=== PATIENT | female | born 1985 | race Two or more races ===

== ENCOUNTER 2019-10-21 02:04 | Emergency (ER) | payer BC ==
[2019-10-21] MEDS ORDERED: NORMAL SALINE 1000 ML 1,000 ML IV ONE (02:13)
[2019-10-21] MEDS ORDERED: ONDANSETRON HCL INJ/PF 4 MG/2 ML SDV IV ONE (02:13)
[2019-10-21 02:40] LABS: ABSOLUTE EOSINOPHILS # (AUTO) 0.2 10^3/uL (0.0-0.6); ABSOLUTE LYMPHOCYTES (AUTO) 1.4 10^3/uL (0.5-4.7); ABSOLUTE MONOCYTES (AUTO) 0.8 10^3/uL (0.1-1.4); ABSOLUTE NEUT (AUTO) 3.7 10^3/uL (1.7-8.2); BASOPHILS % (AUTO) 0.6 % (0-2); EOSINOPHILS % (AUTO) 2.5 % (0-6); HEMATOCRIT 43.5 % (36.0-47.0); HEMOGLOBIN 15.2 g/dL (12.0-15.5); LYMPHOCYTES % (AUTO) 23.1 % (13-45); MEAN CORPUSCULAR HEMOGLOBIN 33.7 pg (27.0-33.4); MEAN CORPUSCULAR HGB CONC 34.9 g/dL (32.0-36.0); MEAN CORPUSCULAR VOLUME 97 fl (80-97); MONOCYTES % (AUTO) 12.5 % (3-13); PLATELET COUNT 272 10^3/uL (150-450); RED BLOOD COUNT 4.51 10^6/uL (3.72-5.28); RED CELL DISTRIBUTION WIDTH 13.6 % (11.5-14.0); SEGMENTED NEUTROPHILS % (AUTO) 61.3 % (42-78); TOTAL CELLS COUNTED % (AUTO) 100 %; WHITE BLOOD COUNT 6.1 10^3/uL (4.0-10.5)
[2019-10-21 02:44] LABS: APPEARANCE,URINE CLOUDY; BILIRUBIN,URINE NEGATIVE (NEGATIVE); COLOR,URINE AMBER; GLUCOSE, URINE NEGATIVE (NEGATIVE); KETONES,URINE 20 mg/dL (NEGATIVE); LEUKOCYTE ESTERASE,URINE MODERATE (NEGATIVE); NITRITE,URINE NEGATIVE (NEGATIVE); PROTEIN,URINE 100 mg/dL (NEGATIVE); URINE SPECIFIC GRAVITY 1.036
[2019-10-21 02:54] LABS: A TYPE INFLUENZA AG POSITIVE (NEGATIVE); ALBUMIN 4.2 g/dL (3.5-5.0); ALKALINE PHOSPHATASE 39 U/L (38-126); ANION GAP 15 (5-19); ASPARTATE AMINO TRANSFERASE 29 U/L (14-36); B INFLUENZA AG NEGATIVE (NEGATIVE); BILIRUBIN,DIRECT 0.4 mg/dL (0.0-0.4); BILIRUBIN,TOTAL 0.4 mg/dL (0.2-1.3); BLOOD UREA NITROGEN 11 mg/dL (7-20); CARBON DIOXIDE 19 mmol/L (22-30); CHLORIDE 105 mmol/L (98-107); GLUCOSE 95 mg/dL (75-110); POTASSIUM 3.8 mmol/L (3.6-5.0); TOTAL PROTEIN 7.8 g/dL (6.3-8.2)
[2019-10-21] MEDS ORDERED: PROMETHAZINE HCL INJ 25 MG/1 ML VIAL IV ONE (04:57)
--- NOTE | 2019-10-21 05:16 | ER Document Report ---
Entered by THAIS PENALOZA SCRIBE 10/21/19 0458 Acting as scribe for:TREY YAP IV, MD ED GI/ - General Mode of Arrival: Ambulatory Information source: Patient TRAVEL OUTSIDE OF THE [place] IN LAST 30 DAYS: No <TREY YAP IV - Last Filed: 10/21/19 05:19> <DOUGHERTYKIM Tanika - Last Filed: 10/21/19 07:33> - General Chief Complaint: Nausea/Vomiting Stated Complaint: VOMITING,STOMACH PAIN Time Seen by Provider: 10/21/19 04:43 Primary Care Provider: VERENICE BARNETT MD [ACTIVE STAFF] - Follow up as needed CAPRI HELM PA-C [Primary Care Provider] - Follow up as needed Notes: This 34 year old female patient presents to the ED today with complaints of nausea and vomiting with associated abdominal cramps that started x3 days ago. Patient states that the nausea occurs all day long and that it has subsided a little after IV Zofran. Patient reports that she was seen at an urgent care recently and prescribed Tamiflu and a x30 day supply of 4 mg Zofran, but states that she hasn't been able to keep them down. Patient notes that her menstrual cycle is x18 days late, she is sexually active, and she doesn't use any form of contraceptives. Patient denies any possibility of being , stating that multiple doctors stated that she has a 1% chance of becoming due to scar tissue on both fallopian tubes and the removal of the right tube. (TREY RODRIGUEZ IV) - Related Data Allergies/Adverse Reactions: hydrocodone bitartrate [From Vicodin] Allergy (Verified 10/21/19 02:09) Past Medical History - General Information source: Patient - Social History Smoking Status: Current Some Day Smoker Cigarette use (# per day): Yes Chew tobacco use (# tins/day): No Smoking Education Provided: No Frequency of alcohol use: None Drug Abuse: None Family History: Reviewed & Not Pertinent, Arthritis, CAD, CVA, Hyperlipidemia, Hypertension, Thyroid Disfunction Patient has suicidal ideation: No Patient has homicidal ideation: No - Past Medical History Cardiac Medical History: Pulmonary Medical History: Reports: Hx Asthma Endocrine Medical History: Reports: Hx Hypothyroidism Renal/ Medical History: Reports: Hx Ovarian Cysts GI Medical History: Musculoskeletal Medical History: Skin Medical History: Reports Hx Cellulitis Infectious Medical History: Past Surgical History: Reports: Hx Gynecologic Surgery - Fallopian tube scar tissue removal. Ovarian cyst removal - Immunizations Immunizations up to date: No Hx Diphtheria, Pertussis, Tetanus Vaccination: No <TREY YAP IV - Last Filed: 10/21/19 05:19> Review of Systems - Review of Systems Constitutional: No symptoms reported EENT: No symptoms reported Cardiovascular: No symptoms reported Respiratory: No symptoms reported Gastrointestinal: See HPI, Abdominal pain, Nausea, Vomiting Genitourinary: No symptoms reported Female Genitourinary: See HPI. denies: Musculoskeletal: No symptoms reported Skin: No symptoms reported Hematologic/Lymphatic: No symptoms reported Neurological/Psychological: No symptoms reported -: Yes All other systems reviewed and negative <TREY YAP IV - Last Filed: 10/21/19 05:19> Physical Exam - General General appearance: Alert In distress: None - HEENT Head: Normocephalic, Atraumatic Eyes: Normal Pupils: PERRL - Respiratory Respiratory status: No respiratory distress Chest status: Nontender Breath sounds: Normal Chest palpation: Normal - Cardiovascular Rhythm: Regular Heart sounds: Normal auscultation Murmur: No Friction rub: No Gallop: None auscultated - Abdominal Inspection: Normal Distension: No distension Bowel sounds: Normal Tenderness: Nontender - Abdomen soft Organomegaly: No organomegaly - Back Back: Normal, Nontender - Extremities General upper extremity: Normal inspection General lower extremity: Normal inspection - Neurological Neuro grossly intact: Yes - Psychological Associated symptoms: Normal affect, Normal mood - Skin Skin Temperature: Warm Skin Moisture: Dry Skin Color: Normal <TREY YAP IV - Last Filed: 10/21/19 05:19> - Vital signs Vitals: Temp Pulse Resp BP Pulse Ox 98.7 F 96 20 127/76 H 98 10/21/19 02:08 10/21/19 02:08 10/21/19 02:08 10/21/19 02:08 10/21/19 02:08 Course - Laboratory Result Diagrams: 10/21/19 02:15 10/21/19 02:15 <TREY YAP IV - Last Filed: 10/21/19 05:19> - Laboratory Result Diagrams: 10/21/19 02:15 10/21/19 02:15 <KIM DOUGHERTY - Last Filed: 10/21/19 07:33> - Re-evaluation Re-evalutation: 10/21/19 07:25 Patient sitting in bed resting comfortably not showing any signs of distress not complaining of any abdominal pain nausea vomiting. Discussed with patient findings of her ultrasound which shows an intrauterine 5 weeks and 6 days. Heart rate 118. No signs of any hemorrhaging at this time. Also discussed patient's urinary symptoms as well as her urinalysis which is a contaminated urine with multiple squamous cells 48 per high-powered field. Told patient we will culture her urine and at this time she has no symptoms of a urinary tract infection such as urinary frequency or burning. Also patient has positive influenza a and will be needing Tamiflu treatment. Patient will be given follow-up with CREW MESS ATTENDANT a in her primary care physician. Also patient will be treated with Tamiflu. (KIM DOUGHERTY) - Vital Signs Vital signs: Temp Pulse Resp BP Pulse Ox 97.4 F 69 20 114/67 98 10/21/19 07:04 10/21/19 06:58 10/21/19 02:08 10/21/19 06:58 10/21/19 06:58 - Laboratory Laboratory results interpreted by me: 10/21/19 10/21/19 10/21/19 02:15 02:15 02:15 MCH 33.7 H Carbon Dioxide 19 L Beta HCG, Quant Urine Protein 100 H Urine Ketones 20 H Urine Blood MODERATE H Urine Urobilinogen 2.0 H Ur Leukocyte Esterase MODERATE H Urine Ascorbic Acid 20 H Urine HCG, Qual 10/21/19 10/21/19 02:15 02:15 [facility] Carbon Dioxide Beta HCG, Quant 60775.00 H Urine Protein Urine Ketones Urine Blood Urine Urobilinogen Ur Leukocyte Esterase Urine Ascorbic Acid Urine HCG, Qual POSITIVE H Discharge <TREY YAP IV - Last Filed: 10/21/19 05:19> <KIM DOUGHERTY - Last Filed: 10/21/19 07:33> - Discharge Clinical Impression: First trimester , Influenza A Condition: Stable Disposition: HOME, SELF-CARE Instructions: Influenza ([facility]) [phone] Additional Instructions: You are . care is best started as early in as possible. If you're unsure about continuing this , you should discuss this with your physician or with pest control operator at [facility]. You should take only medications approved by your physician. Acetaminophen can safely be taken for minor pains. As a rule, medication for chronic conditions such as asthma or seizures can safely be continued. You should discuss with the physician every medicine you take. Any regular exercise program can be continued. Talk to your physician, however, before engaging in competitive or demanding sports. Alcohol, smoking, and "street drugs" are dangerous to your baby. Cocaine is especially dangerous. Don't use any illicit drugs! You have been referred to Dr. Verenice Barnett for CREW MESS ATTENDANT a follow-up. Prescriptions: Oseltamivir Phosphate [Tamiflu 75 mg Capsule] 75 mg PO BID 5 Days #10 capsule Forms: Return to Work Referrals: CAPRI HELM PA-C [Primary Care Provider] - Follow up as needed VERENICE BARNETT MD [ACTIVE STAFF] - Follow up as needed I personally performed the services described in the documentation, reviewed and edited the documentation which was dictated to the scribe in my presence, and it accurately records my words and actions.
[2019-10-21 07:01] VITALS: BP 114/67
--- NOTE | 2019-10-21 08:15 | RADIOLOGY REPORT (SQ) ---
EXAM DESCRIPTION: U/S OB TRANSVAGINAL W/O DOP COMPLETED DATE/TIME: 10/21/2019 6:44 am REASON FOR STUDY: abdominal pain, + test COMPARISON: None. TECHNIQUE: Transvaginal static and realtime grayscale images acquired of the pelvis. Additional trevor cted spectral and color Doppler images recorded. All images stored on PACs. C,050 CLINICAL DATES: EGA: 2 weeks 5 days. MARLENY: 07/08/2020 LIMITATIONS: None. FINDINGS: FETUS: Single Living intrauterine . ULTRASOUND EGA: 5 weeks 6 days ULTRASOUND MARLENY: 06/16/2020 EFW: Not applicable less than 20 weeks. CRL: 0.33 cm FHR: 118 beats per minute. SURVEY: Too early to assess. AMNIOTIC FLUID: Adequate amount. PLACENTA: Not yet developed due to early gestation. SUBCHORIONIC BLEED: A hypoechoic area adjacent to the gestational sac measures 1.0 x 0.5 x 0.8 cm. SIZE OF BLEED: See above. UTERUS: The uterus measures 9.7 x 4.8 x 6.6 cm. A 1.6 x 1.1 x 1.5 cm cm hypoechoic area within the uterus question of an uterine fibroid. CERVICAL LENGTH: 3.2 cm. Closed. RIGHT ADNEXA: Not visualized due to overlying bowel gas. LEFT ADNEXA: Left ovary measures 4.4 x 3.9 x 5.2 cm. A 3.8 x 3.6 x 1.4 cm cyst. No adnexal free flu id. FREE FLUID: None. OTHER: History of right salpingectomy. IMPRESSION: LIVING INTRAUTERINE . EGA: 5 weeks 6 days Small subchorionic bleed. Small uterine fibroid. Left ovarian cyst. Trimester of : First trimester - 0 to 13 weeks. TECHNICAL DOCUMENTATION: JOB ID: [id number] 2010 [employer]- All Rights Reserved rev-12/29 Reading location - IP/workstation name: [email or web address]
== END 2019-10-21 07:46 | disposition home or self-care (01) ==
LOC: ER 02:04
DX: O26.91 Pregnancy related conditions, unspecified, first trimester (principal); J11.1 Influenza due to unidentified influenza virus with other respiratory manifestations; O21.9 Vomiting of pregnancy, unspecified; R10.9 Unspecified abdominal pain; O99.331 Smoking (tobacco) complicating pregnancy, first trimester; E03.9 Hypothyroidism, unspecified; Z3A.01 Less than 8 weeks gestation of pregnancy
CPT/HCPCS: 99284; 96361; 96374; 96375; 86900; 86901; 36415; 87086; 84702; 85025; 81025; 80053; 81001; 87804; 76817; J2550; J2405; J7030

== ENCOUNTER 2020-03-08 10:01 | Outpatient (CLI) | payer BC ==
[2020-03-08 10:52] LABS: APPEARANCE,URINE CLOUDY; BILIRUBIN,URINE NEGATIVE (NEGATIVE); COLOR,URINE YELLOW; GLUCOSE, URINE NEGATIVE (NEGATIVE); KETONES,URINE NEGATIVE (NEGATIVE); LEUKOCYTE ESTERASE,URINE SMALL (NEGATIVE); NITRITE,URINE NEGATIVE (NEGATIVE); PROTEIN,URINE NEGATIVE (NEGATIVE); URINE SPECIFIC GRAVITY 1.018; UROBILINOGEN,URINE NEGATIVE mg/dL (<2.0)
[2020-03-08] MEDS ORDERED: RINGERS SOLUTION,LACTATED 1,000 ML IV PRN (11:01)
[2020-03-08 11:08] LABS: URINE AMPHETAMINES SCREEN NEGATIVE; URINE BARBITURATES SCREEN NEGATIVE; URINE BENZODIAZEPINES SCREEN NEGATIVE; URINE COCAINE SCREEN NEGATIVE; URINE METHADONE SCREEN NEGATIVE; URINE PHENCYCLIDINE SCREEN NEGATIVE
[2020-03-08 11:18] LABS: URINE MARIJUANA (THC) SCREEN UNCONFIRMED POSITIVE
--- NOTE | 2020-03-08 12:20 | RADIOLOGY REPORT (SQ) ---
EXAM DESCRIPTION: U/S OB LIMITED IMAGES COMPLETED DATE/TIME: 03/08/2020 11:54 am REASON FOR STUDY: L sided abd pain @26.1, cervical length COMPARISON: 10/21/2019 TECHNIQUE: Limited transvaginal and transabdominal grayscale ultrasound for evaluation of specific r equested obstetrical parameters. LIMITATIONS: None. FINDINGS: CERVICAL LENGTH: 3.8 cm Closed. JOSH: 16.8 cm. FHR: 141 beats per minute. PRESENTATION: Cephalic. PLACENTA: Fundal ANATOMY: Not assessed OTHER: 6.9 x 4 x 3.4 cm left ovarian cyst.Color Doppler flow demonstrated in the left ovary. IMPRESSION: LIMITED OBSTETRICAL ULTRASOUND WITH MEASURED PARAMETERS DELINEATED ABOVE. 6.9 x 4 x 3.4 cm left ovarian cyst. Color Doppler flow demonstrated in the left ovary. Trimester of : Second trimester - 13 weeks 1 day to 27 weeks 6 days. TECHNICAL DOCUMENTATION: JOB ID: [id number] 2010 [employer]- All Rights Reserved Reading location - IP/workstation name: [email or web address]
== END 2020-03-08 13:14 | disposition home or self-care (01) ==
LOC: LC 10:01
PROVIDERS: ATTEND Obstetrics & Gynecology
DX: O34.82 Maternal care for other abnormalities of pelvic organs, second trimester (principal); Z3A.26 26 weeks gestation of pregnancy
CPT/HCPCS: 81001; 80307; 76815; 59899; G0480 ×2; 80349

== ENCOUNTER 2020-04-15 16:58 | Outpatient (CLI) | payer BC ==
[2020-04-15 18:57] LABS: APPEARANCE,URINE CLOUDY; BILIRUBIN,URINE NEGATIVE (NEGATIVE); COLOR,URINE AMBER; GLUCOSE, URINE NEGATIVE (NEGATIVE); KETONES,URINE NEGATIVE (NEGATIVE); LEUKOCYTE ESTERASE,URINE LARGE (NEGATIVE); NITRITE,URINE NEGATIVE (NEGATIVE); PROTEIN,URINE 100 mg/dL (NEGATIVE)
[2020-04-15 19:17] LABS: ADD MANUAL MICROSCOPIC YES
[2020-04-15 19:18] LABS: BACTERIA,URINE TRACE /HPF
[2020-04-15 19:23] LABS: URINE AMPHETAMINES SCREEN NEGATIVE; URINE BARBITURATES SCREEN NEGATIVE; URINE BENZODIAZEPINES SCREEN NEGATIVE; URINE COCAINE SCREEN NEGATIVE; URINE METHADONE SCREEN NEGATIVE; URINE PHENCYCLIDINE SCREEN NEGATIVE
[2020-04-15 19:24] LABS: URINE MARIJUANA (THC) SCREEN UNCONFIRMED POSITIVE
[2020-04-15] MEDS ORDERED: RINGERS SOLUTION,LACTATED 1,000 ML IV PRN (19:45)
[2020-04-15] MEDS ORDERED: CEFTRIAXONE INJ 1000 MG VIAL IV ONE (19:46)
[2020-04-15] MEDS ORDERED: CEFTRIAXONE INJ 1000 MG VIAL ONE (19:53)
== END 2020-04-15 22:08 | disposition home or self-care (01) ==
LOC: LC 16:58
PROVIDERS: ATTEND Obstetrics & Gynecology
DX: O99.283 Endocrine, nutritional and metabolic diseases complicating pregnancy, third trimester (principal); E86.0 Dehydration; E03.9 Hypothyroidism, unspecified; Z3A.31 31 weeks gestation of pregnancy; Z88.6 Allergy status to analgesic agent; Z87.891 Personal history of nicotine dependence; Z02.83 Encounter for blood-alcohol and blood-drug test
CPT/HCPCS: 59899; 81001; 80307; G0480 ×2; J0696; 80349

== ENCOUNTER 2020-05-30 13:32 | Emergency (ER) | payer BC ==
[2020-05-30] MEDS ORDERED: LIDOCAINE 1% INJ-PF (10 MG/ML) 30 ML SDV INJ ONE (14:00)
[2020-05-30] MEDS ORDERED: ACETAMINOPHEN 325 MG TABLET PO ONE (14:01)
--- NOTE | 2020-05-30 15:03 | ER Document Report ---
HPI - HPI Time Seen by Provider: 05/30/20 13:50 Pain Level: 5 Context: Patient is a 35-year-old female presents to the emergency department with a chief complaint of an abscess to her right inner thigh. Patient states that she was started on amoxicillin by her FOUR CORNER STAYER MACHINE OPERATOR 3 days ago. Patient states that it is not getting any better. States that she started to have some drainage. She is - ROS Systems Reviewed and Negative: Yes All other systems reviewed and negative - CONSTITUTIONAL Constitutional: DENIES: Fever, Chills - REPRODUCTIVE Reproductive: REPORTS: : - MUSCULOSKELETAL Musculoskeletal: REPORTS: Extremity pain - Right inner thigh - DERM Skin Color: Normal Notes: Abscess to right inner thigh Past Medical History - General Information source: Patient - Social History Smoking Status: Never Smoker Family History: Reviewed & Not Pertinent, Arthritis, CAD, CVA, Hyperlipidemia, Hypertension, Thyroid Disfunction - Past Medical History Cardiac Medical History: Pulmonary Medical History: Reports: Hx Asthma Endocrine Medical History: Reports: Hx Hypothyroidism Renal/ Medical History: Reports: Hx Ovarian Cysts. Denies: Hx Peritoneal Dialysis GI Medical History: Musculoskeletal Medical History: Skin Medical History: Reports Hx Cellulitis Infectious Medical History: Past Surgical History: Reports: Hx Gynecologic Surgery - Fallopian tube scar tissue removal. Ovarian cyst removal - Immunizations Immunizations up to date: No Hx Diphtheria, Pertussis, Tetanus Vaccination: No Vertical Provider Document - CONSTITUTIONAL Agree With Documented VS: Yes Exam Limitations: No Limitations General Appearance: No Apparent Distress - INFECTION CONTROL TRAVEL OUTSIDE OF THE [place] IN LAST 30 DAYS: No - HEENT HEENT: Atraumatic, Normocephalic, PERRLA - RESPIRATORY Respiratory: No Respiratory Distress - CARDIOVASCULAR Cardiovascular: Regular Rate - GI/ABDOMEN Gastrointestinal: Abdomen Soft, Abdomen Non-Tender - MUSCULOSKELETAL/EXTREMETIES Musculoskeletal/Extremeties: FROM - NEURO Level of Consciousness: Awake, Alert, Appropriate Motor/Sensory: No Motor Deficit, No Sensory Deficit - DERM Integumentary: Warm, Dry, Abscess - Right inner thigh Course - Re-evaluation Re-evalutation: 05/30/20 Differential diagnosis includes but normal limited to: abscess, dermoid cyst, sebaceous cyst, furnucle, or others. Based on patient's physical exam and history, this is an abscess. It was drained in the ER. There is slight surrounding cellulitis. I do not believe the patient has underlying necrotizing fasciitis. Based on patient's physical exam and these factors, they will be treated with Keflex. Packing was placed. See procedure note. Follow-up precautions were given. Verbal discharge instructions were given to the patient. They verbalized understanding. They are stable for discharge. - Vital Signs Vital signs: Temp Pulse Resp BP Pulse Ox 97.9 F 100 20 125/70 98 05/30/20 13:43 05/30/20 13:43 05/30/20 13:43 05/30/20 13:43 05/30/20 13:43 Procedures - Incision and Drainage Right Medial Thigh Type: Simple Anesthetic type: 1% Lidocaine mL's of anesthetic: 10 Blade size: 11 I&D procedure: Betadine prep applied, Shurclens applied, Iodoform packing placed, Sterile dressing applied Incision Method: Incision made by scalpel Amount/type of drainage: 30 mL/purulent and blood Adult Front & Back picture: 1 - Abscess Discharge - Discharge Clinical Impression: Abscess Condition: Stable Disposition: HOME, SELF-CARE Instructions: Cephalexin ([facility]), Post Incision and Drainage Additional Instructions: You were seen today in the emergency department for an abscess to your right i nner thigh. Take Tylenol 650 mg every 6 hours for your pain. Stop your amoxicillin. Start Keflex as ordered. Follow-up with your primary care provider on Monday to have the packing removed and reassess the wound. You can keep the Benji wrap around your inner thigh to keep pressure to the area. Prescriptions: Cephalexin Monohydrate [Keflex 500 mg Capsule] 500 mg PO Q6H 7 Days #28 capsule Forms: Return to Work Referrals: TRINIDAD MONTESINOS MD [ACTIVE STAFF] - Follow up as needed JACINDA BOWDEN MD [EMERITUS] - 06/01/20
[2020-05-30 15:33] VITALS: BP 121/71
== END 2020-05-30 15:33 | disposition home or self-care (01) ==
LOC: ER 13:32
DX: L02.415 Cutaneous abscess of right lower limb (principal)
CPT/HCPCS: 99283; 87070; 87205; 87075; 10060; J3490

== ENCOUNTER 2020-06-05 23:02 | Inpatient (IN) | payer BC ==
[2020-06-05 23:43] LABS: APPEARANCE,URINE CLOUDY; BILIRUBIN,URINE NEGATIVE (NEGATIVE); COLOR,URINE YELLOW; GLUCOSE, URINE NEGATIVE (NEGATIVE); KETONES,URINE NEGATIVE (NEGATIVE); LEUKOCYTE ESTERASE,URINE SMALL (NEGATIVE); NITRITE,URINE NEGATIVE (NEGATIVE); PROTEIN,URINE 30 mg/dL (NEGATIVE); URINE SPECIFIC GRAVITY 1.029; UROBILINOGEN,URINE NEGATIVE mg/dL (<2.0)
[2020-06-06 00:06] LABS: URINE AMPHETAMINES SCREEN NEGATIVE; URINE BENZODIAZEPINES SCREEN NEGATIVE; URINE COCAINE SCREEN NEGATIVE; URINE METHADONE SCREEN NEGATIVE; URINE PHENCYCLIDINE SCREEN NEGATIVE
[2020-06-06 00:13] LABS: URINE BARBITURATES SCREEN UNCONFIRMED POSITIVE; URINE MARIJUANA (THC) SCREEN UNCONFIRMED POSITIVE
[2020-06-06] MEDS ORDERED: RINGERS SOLUTION,LACTATED 1,000 ML IV ONE ×2 (00:47→04:09)
[2020-06-06] MEDS ORDERED: ONDANSETRON HCL INJ/PF 4 MG/2 ML SDV ONE (00:49)
--- NOTE | 2020-06-06 03:56 | RADIOLOGY REPORT (SQ) ---
EXAM: US Biophysical Profile Without Non-Stress Testing EXAM DATE/TIME: 06/06/2020 2:48 AM CLINICAL HISTORY: The patient is 35 years old and is Female; non reactive NST , gestational age 39 weeks 0 days TECHNIQUE: Real-time ultrasound of the maternal pelvis for biophysical profile evaluation with image documentation. COMPARISON: OB ultrasound from 03/08/2020 FINDINGS: FETUS: Single intrauterine . HEART RATE: heart rate is 141 bpm. PRESENTATION: presentation is vertex. BIOPHYSICAL PROFILE: BREATHING MOVEMENTS: Score 0/2. GROSS BODY MOVEMENTS: Present. Score 2/2. TONE: Score 0/2. QUALITATIVE AMNIOTIC FLUID VOLUME: JOSH is 11.7 cm. Largest vertical pocket of amniotic fluid is 5.4 x 5.3 cm. Score 2/2. IMPRESSION: Abnormal biophysical profile score of 4/8.
[2020-06-06] MEDS ORDERED: RINGERS SOLUTION,LACTATED 1,000 ML IV PRN (04:09)
--- NOTE | 2020-06-06 04:35 | Admission Physical ---
Datetime Report Generated by CPN: 06/06/2020 04:34 CURRENT ADMISSION Chief Complaint: Uterine Contractions; Other Chief Complaint Other: observation Indication for Induction: Not Applicable Admit Impression : Term, Intrauterine ; Intact Membranes; Observation/Evaluation Admit Plan: Admit to Unit; Observation/Evaluation ALLERGIES Medication Allergies: Yes Medication Allergies: hydrocodone bitartrate (04/15/2020) Latex: No Latex Allergies OBSTETRICAL HISTORY EDC: 06/13/2020 00:00 : 1 Para: 0 Term: 0 : 0 SAB: 0 IAB: 0 Livin Gestational Diabetes: No Rh Sensitization: No Incompetent Cervix: No HUONG: No Infertility: No ART Treatment: No Uterine Anomaly: No IUGR: No Hx Previous C/S: No Macrosomia: No Hx Loss/Stillborn: No PIH: No Hx : No Placenta Previa/Abruption: No Depression/PP Depression: No PTL/PROM: No Post Hemorrhage: No Current Procedures: Ultrasound; NST Obstetrical History Comments: g1- current . hypothyroidism (taking synthroid) SEE RECORDS Alcohol: No Marijuana : Yes Marijuana Frequency: Occasional Marijuana Comments: edibles occassionally Cocaine: No Other Illicit Drugs: No Cigarettes: Former Smoker. [id number] Cigarette Frequency: < 5 per day Advised to Stop: Yes MEDICAL HISTORY Diabetes: No Blood Transfusion: No Pulmonary Disease (Asthma, TB): No Breast Disease: No Hypertension: No Wedding Decorator Surgery: No Heart Disease: No Hosp/Surgery: No Autoimmune Disorder: No Anesthetic Complications: No Kidney Disease: No Abnormal Pap Smear: No Neuro/Epilepsy: No Psychiatric Disorders: No Other Medical Diseases: No Hepatitis/Liver Disease: No Significant Family History: No Varicosities/Phlebitis: No Trauma/Violence : No Thyroid Dysfunction: Yes Medical History Comments: Hypothyroidism- takes Synthroid 150 mcg cyst on Left ovary INFECTIOUS HISTORY Gonorrhea: No Genital Herpes: No Chlamydia: No Tuberculosis: No Syphilis: No Hepatitis: No HIV/AIDS Exposure: No Rash or Viral Illness: No HPV: No PHYSICAL EXAM General: Normal HEENT: Normal Neurologic: Normal Thyroid: Deferred Heart: Normal Lungs: Normal Breast: Deferred Back: Normal Abdomen: Normal Genitourinary Exam: Normal Extremities: Normal DTRs: Normal Pelvic Type: Adequate MEMBRANES Membranes: Intact FETUS A EGA: 39.0 Monitoring: External US FHR- Baseline: 120 Variability: Moderate 6-25bpm Accelerations: 10X10 Decelerations: None FHR Category: Category II Presentation: Vertex Admit Comment: 35yo at 39+0ega presents for lower abdominal pain. she is having regular uterine contractions but no cervical change in 2 hours. She may be in latent labor or transitioning to active or this may be dehydration. Spec grav 1.029. She was vomiting when she arrived but feels better with IVF and zofran. NST was reassuring with 10x10 but not reactive. BPP reported as 4/8 but when placed back on monitor reassuring NST with 10 x10 again and possible 15 x15 with good variability. Will admit for observation and re-eval BPP in a couple of hours. Also monitor if signs of transition to active labor. She reports smoking cig prior to arrival - however tox screen was positive for THC. + for mick also but patient is on Fioricet. Will continue to monitor. PLANS FOR LABOR AND DELIVERY Pain Management: Medications Other Pain Management Plans: IV meds Feeding Preference: Breast Benefit of Breast Feed Discussed: Yes Circumcision: Yes INFORMED CONSENT Informed Consent Obtained: Vaginal Delivery; Risks, Benefits and Alternatives Discussed Signature: with User ID: [email or web address]
[2020-06-06 05:10] LABS: ABSOLUTE LYMPHOCYTES (AUTO) 1.8 10^3/uL (0.5-4.7); ABSOLUTE MONOCYTES (AUTO) 0.7 10^3/uL (0.1-1.4); BASOPHILS % (AUTO) 0.2 % (0-2); EOSINOPHILS % (AUTO) 0.2 % (0-6); HEMATOCRIT 33.1 % (36.0-47.0); HEMOGLOBIN 11.6 g/dL (12.0-15.5); LYMPHOCYTES % (AUTO) 11.8 % (13-45); MEAN CORPUSCULAR HEMOGLOBIN 32.4 pg (27.0-33.4); MEAN CORPUSCULAR HGB CONC 35.1 g/dL (32.0-36.0); MEAN CORPUSCULAR VOLUME 92 fl (80-97); MONOCYTES % (AUTO) 4.5 % (3-13); PLATELET COUNT 364 10^3/uL (150-450); RED BLOOD COUNT 3.59 10^6/uL (3.72-5.28); RED CELL DISTRIBUTION WIDTH 13.5 % (11.5-14.0); SEGMENTED NEUTROPHILS % (AUTO) 83.3 % (42-78); TOTAL CELLS COUNTED % (AUTO) 100 %; WHITE BLOOD COUNT 15.7 10^3/uL (4.0-10.5)
[2020-06-06] MEDS ORDERED: LEVOTHYROXINE SODIUM 0.075 MG TABLET PO SCH (06:00)
[2020-06-06] MEDS ORDERED: MAG HYDROX/AL HYDROX/SIMETH SUSP 30 ML UDCUP PO PRN (07:43)
[2020-06-06] MEDS ORDERED: ACETAMINOPHEN 325 MG TABLET PO PRN ×2 (07:43→16:29)
--- NOTE | 2020-06-06 07:58 | L&D Progress Notes ---
PROGRESS NOTES Datetime Report Generated by CPN: 06/06/2020 07:58 PROGRESS NOTE Impression: Rupture of Membranes Procedures: Sterile Vag Exam Plan: Continue Present Management; Induction Informed Consent Obtained: Vaginal Delivery; Induction of Labor; Risks, Benefits and Alternatives Discussed Vital Signs : Reviewed Comment: cvx 1cm now. pt reports possible leaking. customer engagement managerbilingual recruiter reported possible SROM and Actimprom requested with fern since prior actimprom was negative at 2325. After day RN noted opal gush green fluid c/w meconium stained amniotic fluid. Proceed with full admission and actimprom and fern done. LAST VAGINAL EXAM-NURSING Nursing Exam Dilitation: FT Nursing Exam Effacement: 80 Nursing Exam Station: -2 Nursing Exam Contractions: unable to determine, placing ARSALAN MEMBRANES Membranes: Ruptured Amniotic Fluid Color: Meconium, Light FETUS A FHR - Baseline: 130 Monitoring: External US Variability: Moderate 6-25bpm Accelerations: 15X15 Decelerations: None FHR Category: Category I Presentation: Vertex SIGNATURE SIGNATURE: 10,[id number];13,[id number] Signature: with User ID: [email or web address]
[2020-06-06] MEDS ORDERED: PROMETHAZINE HCL INJ 25 MG/1 ML VIAL ONE (09:33)
[2020-06-06] MEDS ORDERED: NALBUPHINE HCL INJ 10 MG/1 ML AMPULE ONE (09:33)
[2020-06-06] MEDS ORDERED: OXYTOCIN 10 UNIT/ML VIAL ONE (10:05)
[2020-06-06] MEDS ORDERED: OXYTOCIN/0.9 % SODIUM CHLORIDE 30 UNIT/500 ML RTUINJ ONE (10:05)
[2020-06-06] MEDS ORDERED: LIDOCAINE 1% INJ-PF (10 MG/ML) 30 ML SDV ONE (10:05)
[2020-06-06] MEDS ORDERED: MISOPROSTOL 0.2 MG TABLET ONE (10:05)
[2020-06-06] MEDS ORDERED: OXYTOCIN/0.9 % SODIUM CHLORIDE 30 UNIT/500 ML RTUINJ IV PRN ×2 (13:15→16:29)
[2020-06-06] MEDS ORDERED: ACETAMINOPHEN 325 MG TABLET ONE (13:49)
[2020-06-06] MEDS ORDERED: EPHEDRINE SULFATE INJ 50 MG/1 ML AMPULE ONE (14:13)
[2020-06-06] MEDS ORDERED: FENTANYL/BUPIVACAINE/NS/PF 300 MCG/150 ML RTUINJ EPI ONE (14:13)
[2020-06-06] MEDS ORDERED: ROPIVACAINE HCL 0.2% INJ/PF (2 MG/ML) 20 ML SDV ONE (14:14)
[2020-06-06] MEDS ORDERED: ACETAMINOPHEN WITH CODEINE #3 TABLET PO PRN ×3 (16:29→21:33)
[2020-06-06] MEDS ORDERED: MAGNESIUM HYDROXIDE SUSP 30 ML UDCUP PO PRN ×2 (16:29→21:33)
[2020-06-06] MEDS ORDERED: BENZOCAINE/MENTHOL AEROSOL SPRAY 56 ML TOP PRN ×2 (16:29→21:33)
[2020-06-06] MEDS ORDERED: ZOLPIDEM TARTRATE 5 MG TABLET PO PRN ×2 (16:29→21:33)
[2020-06-06] MEDS ORDERED: DIBUCAINE 1% OINTMENT 28 GM TP PRN ×2 (16:29→21:33)
[2020-06-06] MEDS ORDERED: NA PHOS,M-B/NA PHOS,DI-BA (ADULT) 133 ML ENEMA PR PRN ×2 (16:29→21:33)
[2020-06-06] MEDS ORDERED: PROMETHAZINE HCL 25 MG SUPP.RECT PR PRN ×2 (16:29→21:33)
[2020-06-06] MEDS ORDERED: PROMETHAZINE HCL 25 MG TABLET PO PRN ×2 (16:29→21:33)
[2020-06-06] MEDS ORDERED: PSEUDOEPHEDRINE HCL 30 MG TABLET PO PRN ×2 (16:29→21:33)
[2020-06-06] MEDS ORDERED: ACETAMINOPHEN 650 MG SUPP.RECT PR PRN ×2 (16:29→21:33)
[2020-06-06] MEDS ORDERED: PROMETHAZINE HCL INJ 25 MG/1 ML VIAL IV PRN ×2 (16:29→21:33)
[2020-06-06] MEDS ORDERED: DIPH/PERTUSS(ACELL)/TETANUS VAC/PF 0.5 ML SYR (>=10YO) IM PRN ×2 (16:29→21:33)
[2020-06-06] MEDS ORDERED: MEASLES,MUMPS&RUBELLA VACC/PF 0.5 ML VIAL SUBCUT PRN ×2 (16:29→21:33)
[2020-06-06] MEDS ORDERED: DIPHENHYDRAMINE HCL 25 MG CAPSULE PO PRN ×2 (16:29→21:33)
[2020-06-06] MEDS ORDERED: GLYCERIN/WITCH HAZEL LEAF 1 EACH MED..WIPE TP PRN ×2 (16:29→21:33)
--- NOTE | 2020-06-06 17:03 | Birth Certificate Data ---
Cert Data Datetime Report Generated by CPN: 06/06/2020 17:03 CERTIFICATE DATA 47a. Care: Yes (03/08/2020 10:16:Kelly Bone RN) 48a. Number of Prev Live Births: 0 (03/08/2020 10:16:Charmaine Ledezma RN) 48b. Now Livin (03/08/2020 10:16:Kelly Bone RN) 48c. Live Births Now : 0 (03/08/2020 10:16:QS system process) 48e. Losses: 0 (03/08/2020 10:16:Charmaine Ledezma RN) RISK FACTORS IN THIS 49a. Diabetes: No (03/08/2020 10:16:Erna Patel RN) 49b. Hypertension: No (03/08/2020 10:16:Erna Patel RN) 49c. Previous Births: 0 (03/08/2020 10:16:Kelly Bone RN) 49d. Stillborns: No (03/08/2020 10:16:Erna Patel RN) 49d. IUGR: No (03/08/2020 10:16:Erna Patel RN) 49e. Infertility Treatment: No (03/08/2020 10:16:Erna Patel RN) 49f. Previous Cesareans: 0 (03/08/2020 10:16:Jessica Felix RN) Mother's Height 50b. Height Inches: 66 (06/06/2020 11:22:QS system process) Mother's Weight 51a. Pre- Weight (lbs): 223 (03/08/2020 10:16:Jessica Felix RN) 51b. Weight at Delivery (lbs): 253 (06/06/2020 11:22:QS system process) 52. Dt Last Normal Menses Began: 09/06/2019 00:00 (03/08/2020 10:16:Erna Patel RN) Infections Present/Treated 53a. Gonorrhea: No (03/08/2020 10:16:Erna Patel RN) Results this Hospital Visit : Negative (03/08/2020 10:16:Erna Patel RN) 53b. Syphilis: No (03/08/2020 10:16:Erna Patel RN) 53c. Chlamydia: No (03/08/2020 10:16:Erna Patel RN) Results this Hospital Visit: Negative (03/08/2020 10:16:Erna Patel RN) 53d. Hepatitis B: No (03/08/2020 10:16:Erna Patel RN) Results this Hospital Visit: Negative (03/08/2020 10:16:Kelly Bone RN) 53e. Hepatitis C: Negative (03/08/2020 10:16:Erna Patel RN) 53h. Mother Tested for HBsAG: Yes (03/08/2020 10:16:Erna Patel RN) 53i. Date Tested: 11/05/2019 00:00 (03/08/2020 10:16:Erna Patel RN) 53j. Test Result: Negative (03/08/2020 10:16:Kelly Bone RN) Obstetric Procedures 54a, b, c. Obstetric Procedures: Ultrasound; NST (03/08/2020 10:16:Erna Patel RN) Cigarette Smoking Cigarette Smoking: Former Smoker. [id number] (03/08/2020 10:16:Kelly Bone RN) 55a. 3 Months Before Preg - Cig: <5 (03/08/2020 10:16:Charmaine Ledezma RN) 55b. 1st Trimester of Preg- Cig: <5 (03/08/2020 10:16:Charmaine Ledezma RN) 55c. 2nd Trimester of Preg- Cig: <5 (03/08/2020 10:16:Charmaine Ledezma RN) 55d. 3rd Trimester of Preg- Cig: <5 (03/08/2020 10:16:Charmaine Ledezma RN) Onset of Labor 56a. PROM >12 Hrs: 9.20 (03/08/2020 10:16:QS system process) 56b. Precipitous Labor <3 Hrs: 3 (03/08/2020 10:16:QS system process) 56c. Prolonged Labor > 20 Hrs: 3 (03/08/2020 10:16:QS system process) 57a. Induction of Labor: Augmentation (03/08/2020 10:16:Mindi Ley RN) 57c. Non-Vertex Presentation A: Vertex (03/08/2020 10:16:Babita Adams RN) 57d. Steroids - Lung Mat: None (03/08/2020 10:16:Jessica Felix RN) 57d. Steroids - Lung Mat: Not Applicable (03/08/2020 10:16:Jessica Felix RN) 57g. Moderate/Heavy Meconium: Heavy Meconium (03/08/2020 10:16:Jessica Felix RN) 57i. Epidural/Spinal Anesthesia: Epidural (03/08/2020 10:16:Babita Adams RN) Method of Delivery 58a. Forceps - Unsuccessful A: N/A (03/08/2020 10:16:Babita Adams RN) 58b. Vacuum - Unsuccessful A: N/A (03/08/2020 10:16:Babita Adams RN) 58c. Presentation at 58c. Presentation at - A : Vertex (03/08/2020 10:16:Babita Adams RN) 58c. Presentation at - A : N/A (03/08/2020 10:16:Babita Adams RN) 58c. Presentation at - A : Cephalic (06/06/2020 03:46:Charmaine Ledezma RN) Final Route and Method of Del 58d. Baby A Route/Delivery: Vaginal (06/06/2020 16:11:Minid Ley RN) 58e. Trial of Labor Attempted: No (03/08/2020 10:16:Jessica Felix RN) 58e. Trial of Labor Attempted A: N/A (03/08/2020 10:16:Jessica Felix RN) 58e. Trial of Labor Attempted B: N/A (03/08/2020 10:16:Jessica Felix RN) Maternal Morbidity 59b. 3rd or 4th Degree Lacs: Periurethral (03/08/2020 10:16:Mindi Ley RN) 59b. 3rd or 4th Degree Lacs: Left periurethral laceration (03/08/2020 10:16:Camelia Guzman MD) 61. GA at Delivery Baby A: 39.0 (03/08/2020 10:16:Babita Adams RN) : Full Term- 39- 40.6 Weeks (03/08/2020 10:16:QS system process) 62a. 5 Minute Baby A: 9 (03/08/2020 10:16:QS system process)
--- NOTE | 2020-06-06 17:05 | Delivery Summary ---
Del Sum A-C Datetime Report Generated by CPN: 06/06/2020 17:04 DELIVERY PERSONNEL DELIVERY PERSONNEL: [id number] Delivery Doctor:: Camelia Guzman MD Labor and Delivery Nurse:: Mindi Ley RN Nursery Nurse:: Liss Robert RN Retail Director/BIOTECHNOLOGIST: Mary Small CST Retail Director/BIOTECHNOLOGIST: Amrita Ayala CST Additional Personnel: : Babita Adams RN MATERNAL INFORMATION Delivery Anesthesia: Epidural Medications After Delivery: Pitocin 30 Units in 500ml NS/D5W Maternal Complications: None Provider Comments: Called to patients room as she was near complete with bulging fore bag. Ruptured this bag, and patient was anterior lip but resolved with next contraction. She pushed through 2- 3 contractions and delivered a viable male . Nuchal x1 loose and easily reduced. After the head, the shoulders and rest of the body followed easily. vigorous at delivery. Oral and nasal suctioning done. placed skin to skin with Mother after cord clamped and cut. Both Mother and infant stable. LABOR SUMMARY EDC: 06/13/2020 00:00 No. Babies in Womb: 1 Attempted: No Labor Anesthesia: Epidural LABOR INFORMATION Reason for Induction: Not Applicable Onset of Labor: 06/06/2020 13:00 Complete Dilatation: 06/06/2020 16:00 Oxytocin: Augmentation Group B Beta Strep: negative Name of Antibiotic Given: n/a Steroids Given: None Reason Steroids Not Administered: Not Applicable MEMBRANES Membranes Rupture Method: Spontaneous Rupture of Membranes: 06/06/2020 07:00 Length of Rupture (hr): 9.20 Amniotic Fluid Color: Heavy Meconium Amniotic Fluid Amount: Small Amniotic Fluid Odor: Normal STAGES OF LABOR Stage 1 hr: 3 Stage 1 min: 0 Stage 2 hr: 0 Stage 2 min: 12 Stage 3 hr: 0 Stage 3 min: 3 Total Time in Labor hr: 3 Total Time in Labor min: 15 VAGINAL DELIVERY Episiotomy: None Laceration #1: Periurethral Laceration Extension #1: First Degree Other Laceration: Left periurethral laceration Laceration Repair: Yes Laceration Repair Note: Repaired with 3-0 chromic on an SH Sponge Count Correct: Yes Sharps Count Correct: Yes BABY A INFORMATION Delivery Date/Time: 06/06/2020 16:12 Method of Delivery: Vaginal Nurse Controlled Delivery: No Born in Route : No : N/A Forceps: N/A Vacuum Extraction: N/A Shoulder Dystocia : No PRESENTATION/POSITION BABY A Presentation: Cephalic Cephalic Presentation: Vertex Vertex Position: Right Occipital Anterior Breech Presentation: N/A PLACENTA INFORMATION BABY A Placenta Delivery Time : 06/06/2020 16:15 Placenta Method of Delivery: Spontaneous Placenta Status: Delivered SCORES BABY A Heart Rate 1 min: >100 bpm Resp Effort 1 min: Good Cry Reflex Irritability 1 min: Cough or Sneeze or Pulls Away Muscle Tone 1 min: Active Motion Color 1 min: Body [place], Extremities Blue Resuscitation Effort 1 min: Tactile Stimulation SCORE 1 MIN: 9 Heart Rate 5 min: >100 bpm Resp Effort 5 min: Good Cry Reflex Irritability 5 min: Cough or Sneeze or Pulls Away Muscle Tone 5 min: Active Motion Color 5 min: Body [place], Extremities Blue Resuscitation Effort 5 min: Tactile Stimulation SCORE 5 MIN: 9 INFORMATION BABY A Gestational Age at Delivery: 39.0 Gestational Status: Full Term- 39- 40.6 Weeks Infant Outcome : Liveborn Condition : Stable Sex: Male CORD INFORMATION BABY A No. Cord Vessels: 3 Nuchal Cord : Around Neck x1, Loose Cord Blood Taken: Yes-For Eval (Mom's Blood Type - or O+) Infant Suction: Mouth; Nose ASSESSMENT BABY A Complications: None Physical Findings at Delivery: Within Normal Limits Infant Respirations: Appears Normal Skin to Skin: Yes Manager Of Enterprise/ALS Called : No Care By: B Robert, RN Transferred To: Remains with Mother BABY B INFORMATION : N/A SIGNATURES Signature: with User ID: [email or web address] : with User ID: [email or web address]
[2020-06-06] MEDS ORDERED: FERROUS SULFATE 325 MG TABLET PO SCH (18:00)
[2020-06-06] MEDS ORDERED: DOCUSATE SODIUM 100 MG CAPSULE PO SCH (18:00)
[2020-06-06] MEDS ORDERED: BENZOCAINE/MENTHOL AEROSOL SPRAY 56 ML ONE (18:29)
[2020-06-06] MEDS ORDERED: IBUPROFEN 800 MG TABLET ONE (18:29)
[2020-06-06] MEDS: IBUPROFEN 800 MG TABLET PO SCH ×3 (18:51→22:21)
[2020-06-06] MEDS ORDERED: CEPHALEXIN 500 MG CAPSULE ONE (20:55)
[2020-06-06] MEDS: CEPHALEXIN 500 MG CAPSULE PO SCH (20:58)
[2020-06-06] MEDS ORDERED: FAMOTIDINE 20 MG TABLET PO SCH (22:00)
[2020-06-06] MEDS: FAMOTIDINE 20 MG TABLET PO SCH (22:21)
[2020-06-07] MEDS ORDERED: CEPHALEXIN 500 MG CAPSULE ONE (01:58)
[2020-06-07] MEDS: CEPHALEXIN 500 MG CAPSULE PO SCH ×5 (02:42→21:31)
[2020-06-07] MEDS ORDERED: LEVOTHYROXINE SODIUM 0.15 MG TABLET PO SCH ×2 (06:00)
[2020-06-07] MEDS: IBUPROFEN 800 MG TABLET PO SCH ×3 (06:03→21:31)
[2020-06-07] MEDS: LEVOTHYROXINE SODIUM 0.15 MG TABLET PO SCH (06:04)
[2020-06-07 08:07] LABS: HEMATOCRIT 29.4 % (36.0-47.0); HEMOGLOBIN 10.3 g/dL (12.0-15.5); MEAN CORPUSCULAR HEMOGLOBIN 32.8 pg (27.0-33.4); MEAN CORPUSCULAR HGB CONC 35.1 g/dL (32.0-36.0); MEAN CORPUSCULAR VOLUME 94 fl (80-97); PLATELET COUNT 328 10^3/uL (150-450); RED BLOOD COUNT 3.15 10^6/uL (3.72-5.28); RED CELL DISTRIBUTION WIDTH 13.7 % (11.5-14.0); WHITE BLOOD COUNT 14.6 10^3/uL (4.0-10.5)
[2020-06-07] MEDS ORDERED: PRENATAL VITAMIN W DHA CAPSULE PO SCH (10:00)
[2020-06-07] MEDS ORDERED: SENNOSIDES/DOCUSATE 8.6-50 MG 1 EACH TABLET PO SCH (10:00)
[2020-06-07] MEDS: FERROUS SULFATE 325 MG TABLET PO SCH ×2 (10:06→17:33)
[2020-06-07] MEDS: PRENATAL VITAMIN W DHA CAPSULE PO SCH (10:06)
[2020-06-07] MEDS: FAMOTIDINE 20 MG TABLET PO SCH ×2 (10:07→21:31)
[2020-06-07] MEDS: SENNOSIDES/DOCUSATE 8.6-50 MG 1 EACH TABLET PO SCH (10:07)
[2020-06-07] MEDS: DOCUSATE SODIUM 100 MG CAPSULE PO SCH ×2 (10:07→17:33)
--- NOTE | 2020-06-07 10:22 | PDOC PROGRESS REPORT ---
Subjective-OB Progress Note for:: 06/07/20 - PP Day #1, doing well, UOb, voiding, O+, breast feeding Physical Exam (OB) Vital Signs: Temp Pulse Resp BP Pulse Ox 97.5 F 90 17 124/64 98 06/07/20 09:05 06/07/20 08:10 06/07/20 08:10 06/07/20 08:10 06/07/20 08:10 Intake & Output 06/06/20 06/07/20 06/08/20 06:59 06:59 06:59 Intake Total 620 Output Total 250 Balance -250 620 Weight 115.4 kg - General General Appearance: Appears well, Alert - PIH/Pre-Eclampsia Clonus: Negative Headache: Absent Epigastric Pain: No Visual Changes: No - Maternal Morbidity 59. Maternal Morbidity (serious complications experinced by the mother associated with labor and delivery: None of the above - Lochia Lochia Amount: Scant < 10 ml Lochia Color: Rubra/Red - Abdomen Description: Soft Fundal Description: Firm, Midline Fundal Height: u/u - u/2 - Respiratory Respiratory Status: No respiratory distress - Abdominal Inspection: Normal Distension: No distension Tenderness: Nontender - Genitourinary Female External exam: Normal Genitourinary Note: voiding - Extremities Upper extremity: Normal inspection Lower extremities: Normal inspection - Neurological Cognition: Normal Orientation: AAOx4 - Psychological Associated symptoms: Normal affect, Normal mood - Skin Skin Temperature: Warm Skin Moisture: Dry Objective-Diagnostic Laboratory: 06/07/20 07:40 06/07/20 07:40 WBC 14.6 H RBC 3.15 L Hgb 10.3 L Hct 29.4 L MCV 94 MCH 32.8 MCHC 35.1 RDW 13.7 Plt Count 328 Assessment and Plan(PN) - Assessment and Plan (1) (normal spontaneous vaginal delivery) Is this a current diagnosis for this admission?: Yes (2) Meconium in amniotic fluid Is this a current diagnosis for this admission?: Yes (3) Spontaneous rupture of membranes Is this a current diagnosis for this admission?: Yes Plan:: Routine PP orders, ambulation encouraged - Time Spent with Patient Time with patient: Less than 15 minutes Smoking Education Provided: Over 3 minutes Medications reviewed and adjusted accordingly: Yes - Disposition Anticipated Discharge Disposition: Home, Self Care Anticipated Discharge Timeframe: within 24 hours
[2020-06-07] MEDS: ACETAMINOPHEN WITH CODEINE #3 TABLET PO PRN (19:01)
[2020-06-08] MEDS: CEPHALEXIN 500 MG CAPSULE PO SCH ×2 (02:37→09:56)
[2020-06-08] MEDS: ACETAMINOPHEN WITH CODEINE #3 TABLET PO PRN (02:41)
[2020-06-08] MEDS: LEVOTHYROXINE SODIUM 0.15 MG TABLET PO SCH (05:27)
[2020-06-08] MEDS: IBUPROFEN 800 MG TABLET PO SCH (05:27)
[2020-06-08] MEDS: FAMOTIDINE 20 MG TABLET PO SCH (09:56)
[2020-06-08] MEDS: FERROUS SULFATE 325 MG TABLET PO SCH (09:56)
[2020-06-08] MEDS: PRENATAL VITAMIN W DHA CAPSULE PO SCH (09:56)
[2020-06-08] MEDS: SENNOSIDES/DOCUSATE 8.6-50 MG 1 EACH TABLET PO SCH (09:56)
[2020-06-08] MEDS: DOCUSATE SODIUM 100 MG CAPSULE PO SCH (09:56)
--- NOTE | 2020-06-08 11:22 | PDOC DISCHARGE SUMMARY ---
Impression - Admit/DC Date/PCP Admission Date/Primary Care Provider: 06/06/20 04:12 Discharge Date: 06/08/20 - Additional Information Discharge Diet: Regular Discharge Activity: Balance Activity w/Rest, Pelvic Rest Prescriptions: Ibuprofen [Motrin 800 mg Tablet] 800 mg PO Q8HP PRN #60 tablet PRN Reason: Vit/Dha [ Multi + Dha Capsule] 1 cap PO DAILY #90 capsule Home Medications: Vit,Calc76/Iron/Folic [Prenatabs Rx Tablet] 1 each PO DAILY 03/08/20 Cephalexin Monohydrate [Keflex 500 mg Capsule] 500 mg PO Q6H 7 Days #28 capsule 05/30/20 Ibuprofen [Motrin 800 mg Tablet] 800 mg PO Q8HP PRN #60 tablet 06/08/20 Levothyroxine Sodium [Synthroid 0.15 mg Tablet] 0.125 mg PO DAILY #0 06/08/20 Vit/Dha [ Multi + Dha Capsule] 1 cap PO DAILY #90 capsule 06/08/20 Hospital Course 59. Maternal Morbidity (serious complications experinced by the mother associated with labor and delivery: None of the above Results Laboratory Results: WBC 14.6 10^3/uL (4.0-10.5) H 06/07/20 07:40 RBC 3.15 10^6/uL (3.72-5.28) L 06/07/20 07:40 Hgb 10.3 g/dL (12.0-15.5) L 06/07/20 07:40 Hct 29.4 % (36.0-47.0) L 06/07/20 07:40 MCV 94 fl (80-97) 06/07/20 07:40 MCH 32.8 pg (27.0-33.4) 06/07/20 07:40 MCHC 35.1 g/dL (32.0-36.0) 06/07/20 07:40 RDW 13.7 % (11.5-14.0) 06/07/20 07:40 Plt Count 328 10^3/uL (150-450) 06/07/20 07:40 Lymph % (Auto) 11.8 % (13-45) L 06/06/20 04:55 [place] % (Auto) 4.5 % (3-13) 06/06/20 04:55 Eos % (Auto) 0.2 % (0-6) 06/06/20 04:55 Baso % (Auto) 0.2 % (0-2) 06/06/20 04:55 Absolute Neuts (auto) 13.0 10^3/uL (1.7-8.2) H 06/06/20 04:55 Absolute Lymphs (auto) 1.8 10^3/uL (0.5-4.7) 06/06/20 04:55 Absolute Monos (auto) 0.7 10^3/uL (0.1-1.4) 06/06/20 04:55 Absolute Eos (auto) 0.0 10^3/uL (0.0-0.6) 06/06/20 04:55 Absolute Basos (auto) 0.0 10^3/uL (0.0-0.2) 06/06/20 04:55 Seg Neutrophils % 83.3 % (42-78) H 06/06/20 04:55 Urine Color YELLOW 06/05/20 23:10 Urine Appearance CLOUDY 06/05/20 23:10 Urine pH 6.0 (5.0-9.0) 06/05/20 23:10 Ur Specific [place] 1.029 06/05/20 23:10 Urine Protein 30 mg/dL (NEGATIVE) H 06/05/20 23:10 Urine Glucose (UA) NEGATIVE mg/dL (NEGATIVE) 06/05/20 23:10 Urine Ketones NEGATIVE mg/dL (NEGATIVE) 06/05/20 23:10 Urine Blood LARGE (NEGATIVE) H 06/05/20 23:10 Urine Nitrite NEGATIVE (NEGATIVE) 06/05/20 23:10 Urine Bilirubin NEGATIVE (NEGATIVE) 06/05/20 23:10 Urine Urobilinogen NEGATIVE mg/dL (<2.0) 06/05/20 23:10 Ur Leukocyte Esterase SMALL (NEGATIVE) H 06/05/20 23:10 Urine Ascorbic Acid NEGATIVE (NEGATIVE) 06/05/20 23:10 Amniotic Ferning Test FERN PATTERN ABSENT (ABSENT) 06/06/20 07:35 Membranes Rupture POSITIVE (NEGATIVE) H 06/06/20 07:35 Urine Opiates Screen NEGATIVE 06/05/20 23:10 Urine Methadone Screen NEGATIVE 06/05/20 23:10 Ur Barbiturates Screen UNCONFIRMED POSITIVE 06/05/20 23:10 Ur Phencyclidine Scrn NEGATIVE 06/05/20 23:10 Ur Amphetamines Screen NEGATIVE 06/05/20 23:10 U Benzodiazepines Scrn NEGATIVE 06/05/20 23:10 Urine Cocaine Screen NEGATIVE 06/05/20 23:10 U Marijuana (THC) Screen UNCONFIRMED POSITIVE 06/05/20 23:10 RPR NONREACTIVE (NONREACTIVE) 06/06/20 04:55 Blood Type O POSITIVE 06/06/20 04:55 Antibody Screen NEGATIVE 06/06/20 04:55 Impressions: Stress Test 06/06/20 00:00 IMPRESSION: Abnormal biophysical profile score of 4/8. Plan Plan of Treatment: follow up in 4 weeks at [facility] for post check
[2020-06-08 11:32] VITALS: BP 99/66
== END 2020-06-08 13:45 | disposition home or self-care (01) | DRG 807 ==
LOC: LC 23:02 → LR 06-06 04:12 → 2S 06-06 19:59
PROVIDERS: ADMIT Student in an Organized Health Care Education/Training Program; ATTEND Student in an Organized Health Care Education/Training Program
PROC: 10E0XZZ Delivery of Products of Conception, External Approach (ICD-10-PCS; principal; 2020-06-06)
PROC: 0UQMXZZ Repair Vulva, External Approach (ICD-10-PCS; 2020-06-06)
DX: O99.284 Endocrine, nutritional and metabolic diseases complicating childbirth (principal); Z37.0 Single live birth; E03.9 Hypothyroidism, unspecified; O77.0 Labor and delivery complicated by meconium in amniotic fluid; Z20.828 Contact with and (suspected) exposure to other viral communicable diseases; O34.83 Maternal care for other abnormalities of pelvic organs, third trimester; N83.202 Unspecified ovarian cyst, left side; O69.81X0 Labor and delivery complicated by cord around neck, without compression, not applicable or unspecified; Z28.21 Immunization not carried out because of patient refusal; Z88.6 Allergy status to analgesic agent; Z79.890 Hormone replacement therapy; Z87.891 Personal history of nicotine dependence; Z3A.39 39 weeks gestation of pregnancy
CPT/HCPCS: 1967; 36415; 76819; 80307; 80345; 80349; 81005; 84112; 85025; 85027; 86592; 86850; 86900; 86901; G0480; J2300; J2405; J2550; J2590; J2795; J3010; J3490; Q0114